=== PATIENT | male | born 1950 | race Caucasian/White ===

== ENCOUNTER 2020-03-12 00:26 | Emergency (ER) | payer OTHER ==
[~2020-03-12] VITALS: Ht 172.7 cm; Wt 72.6 kg
[2020-03-12 00:34] VITALS: Ht 172.7 cm; Wt 72.6 kg
[2020-03-12 01:05] LABS: BASOPHIL % 1.3 % (0-2)
[2020-03-12 01:07] LABS: PLATELET COUNT 313 x10^3mcL (130-400); RED CELL DISTRIBUTION WIDTH 14.5 % (11.5-14.5)
[2020-03-12 01:08] LABS: CALCIUM 8.4 mg/dL (8.5-10.1); CARBON DIOXIDE 27.2 mmol/L (21-32); CHLORIDE SERUM 100 mmol/L (98-107); CREATININE SERUM 0.9 mg/dL (0.7-1.3); GFR1 > 60 mL/min; GLUCOSE SERUM 89 mg/dL (74-106); POTASSIUM SERUM 3.8 mmol/L (3.5-5.1); SODIUM SERUM 135 mmol/L (136-145)
[2020-03-12 01:16] LABS: ALKALINE PHOSPHATASE 204 U/L (46-116); ALT/SGPT 39 U/L (16-63); AST/SGOT 124 U/L (15-37); BILIRUBIN TOTAL 0.24 mg/dL (0.20-1.00); TOTAL PROTEIN, SERUM 6.7 g/dL (6.4-8.2)
[2020-03-12 01:22] LABS: ALBUMIN 2.7 g/dL (3.4-5.0)
[2020-03-12 02:52] VITALS: BP 98/55
[2020-03-13] MEDS ORDERED: KEPPRA XR500 M2 PO (23:32)
[2020-03-13] MEDS ORDERED: SEROQUEL XR150 M1 PO (23:33)
[2020-03-13] MEDS ORDERED: NAMENDA XR28 MG PO (23:33)
[2020-03-13] MEDS ORDERED: FORTAMET500 M1 PO (23:34)
[2020-03-13] MEDS ORDERED: AMARYL2 MG PO (23:34)
[2020-03-13] MEDS ORDERED: ASPIRIN ADULT L81 M3 PO (23:34)
[2020-03-13] MEDS ORDERED: FOLBIC RF1 TAB PO (23:35)
[2020-03-16] MEDS ORDERED: VAL5 PO (13:02)
== END 2020-03-12 02:53 | disposition home or self-care (01) ==
LOC: ED 00:26
PROVIDERS: Emergency Medicine
DX: D50.9 Iron deficiency anemia, unspecified (principal); F03.90 Unspecified dementia, unspecified severity, without behavioral disturbance, psychotic disturbance, mood disturbance, and anxiety; E11.9 Type 2 diabetes mellitus without complications; W18.30XA Fall on same level, unspecified, initial encounter; Y93.89 Activity, other specified; Y92.89 Other specified places as the place of occurrence of the external cause; Y99.8 Other external cause status
CPT/HCPCS: Q0092